=== PATIENT | female | born 1995 | race Caucasian/White ===

== ENCOUNTER 2017-02-08 09:28 | Emergency (ER) | payer OTHER, BC ==
[2017-02-08 09:51] VITALS: BP 117/65
--- NOTE | 2017-02-08 10:27 | UC ---
Skin Complaint HPI - HPI Summary HPI Summary: Patient presents to the with CC of bug bite to the left lower posterior leg which occurred 2 days ago while hiking in the [place]. She states the bug was large and black. Last evening the area began to become more erythematous, pruritic, swollen, painful with some drainage from the area. Today, there is a large 4cm area which is well demarcated resembling a cellulitis. There is a small puncture wound visible in the center of the erythematous [place] which is likely source of infection. She denies fevers, sweats or chills. She is not concerned with a tick bite. She denies hx of MRSA. Denies allergies and takes no medications. - History of Current Complaint [facility] Time Seen by Provider: 02/08/17 10:06 Stated Complaint: LEFT LEG INSECT BITE Hx Obtained From: Patient Hx Last Menstrual Period: 01/31/17 ?: No Onset/Duration: Sudden Onset Skin Exposure Onset/Duration: Hours Ago Timing: Constant Onset Severity: Mild Current Severity: Mild Pain Intensity: 5 Pain Scale Used: 0-10 Numeric Character: Hives, Redness, Raised, Painful Aggravating Factor(s): Nothing Alleviating Factor(s): Nothing Associated Signs & Symptoms: Positive: Tenderness Related History: Insect Bite/Sting - Allergy/Home Medications Allergies/Adverse Reactions: Allergies Allergy/AdvReac Type Severity Reaction Status Date / Time Rifaximin Allergy See Comment Verified 02/08/17 09:46 Review of Systems Constitutional: Negative Skin: Other - large 4cm well demarcated area to the left posterior lower leg with swelling, warmth and erythema Eyes: Negative Respiratory: Negative Cardiovascular: Negative Motor: Negative Neurovascular: Negative Neurological: Negative Psychological: Negative Is Patient Immunocompromised?: No All Other Systems Reviewed And Are Negative: Yes PMH/Surg Hx/FS Hx/Imm Hx Previously Healthy: Yes - Surgical History Surgical History: None - Family History Known Family History: Positive: Unknown - Social History Occupation: Unemployed Alcohol Use: Occasionally Substance Use Type: None Smoking Status (MU): Never Smoked Tobacco Physical Exam Triage Information Reviewed: Yes Appearance: Well-Appearing, Well-Nourished Vital Signs: Initial Vital Signs Temp 98.6 F 02/08/17 09:47 Pulse 82 02/08/17 09:47 Resp 16 02/08/17 09:47 BP 117/65 02/08/17 09:47 Pulse Ox 99 02/08/17 09:47 Vital Signs Reviewed: Yes Eye Exam: Normal Eyes: Positive: Conjunctiva Clear Neck exam: Normal Neck: Positive: Supple, No Lymphadenopathy Respiratory Exam: Normal Respiratory: Positive: Chest non-tender Cardiovascular Exam: Normal Cardiovascular: Positive: RRR Neurological Exam: Normal Neurological: Positive: Alert Psychological: Positive: Normal Response To Family Skin: Positive: Other - large 4cm well demarcated area to the left posterior lower leg with swelling, warmth and erythema Course/Dx - Course Course Of Treatment: Patient evaluated for bug bite x 2 days ago. Large 4cm well demarcated area to the left posterior lower leg with swelling, warmth and erythema. No drainage for concern for MRSA. She is given Keflex and hydroxyzine for relief. She is OK with discharge and strict return precautions given for worsening symptoms. She agrees and understands these precautions. Nothing to culture at this time. - Differential Diagnoses - Skin Complaint Differential Diagnoses: Abscess, Cellulitis, Other - insect bite - Diagnoses Provider Diagnoses: Cellulitis Discharge - Discharge Plan Condition: Stable Disposition: HOME Prescriptions: Cephalexin CAP* [Keflex CAP*] 500 mg PO QID #28 cap MDD 4 hydrOXYzine HCL TAB* [Atarax 25 MG TAB*] 25 mg PO TID PRN #12 tab MDD 3 PRN Reason: Itching Patient Education Materials: Cellulitis (ED), Insect Bite or Sting (ED) Additional Instructions: Follow up with your PCP as needed Return to the ED if you develop any worsening symptoms. Specifically red streaking around the area, if the red area enlarges, you develop a fever or there is drainage from the area - return to the immediately
== END 2017-02-08 10:31 | disposition home or self-care (01) ==
LOC: UCCORT 09:28
DX: L03.116 Cellulitis of left lower limb (principal)
CPT/HCPCS: 99202; G0463

== ENCOUNTER 2017-06-18 09:57 | Emergency (ER) | payer OTHER, BC ==
[2017-06-18 11:17] VITALS: BP 114/74
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
[2017-06-18] MEDS ORDERED: Ketorolac INJ* 30 MG/ML 1 ML VIAL IM ONE (12:10)
== END 2017-06-18 12:54 | disposition short-term general hospital (02) ==
LOC: UCCORT 09:57
DX: R10.2 Pelvic and perineal pain (principal)
CPT/HCPCS: 81003; 84702; 96372; 99212; G0463; J1885